=== PATIENT | male | born 1965 | race Caucasian/White ===

== ENCOUNTER 2017-04-09 07:50 | Day surgery (SDC) | payer BC ==
--- NOTE | ~2017-04-09 | OP ---
Record Of Operation [facility] [address] [place] [id number] NAME: CHRISTI DOBBS : 65 STATUS : REG [facility]#: [id number] AGE: 52 ADM/REG DATE : 04/09/17 MR#: [id number] REPORT SERV DATE: 04/09/17 DICTATED BY: ZA LEVINE DATE: 04/09/17 REPORT STATUS : Draft TRANSCRIBED BY: BIANKA DATE: 04/09/17 DATE OF PROCEDURE: 04/09/2017 PREOPERATIVE DIAGNOSIS: Left ureteral stone. POSTOPERATIVE DIAGNOSIS: Left ureteral stone. PROCEDURE: Left ESWL. SURGEON: Za Levine MD. ANESTHESIA: MAC. SPECIMENS: None. ESTIMATED BLOOD LOSS: None. DISPOSITION: To day surgery in good condition. HISTORY: This is a 52-year-old gentleman with a 7 mm left ureterovesical junction stone who presents today for the above-stated procedure. PROCEDURE IN DETAIL: After consent was obtained, the patient was taken to the lithotripsy table and placed on the table in supine position. His left ureterovesical junction stone was located on two planes as the most medial calcification in the pelvis. MAC anesthetic was induced. He then received 4000 shocks at max energy level of 9 and rate of 90 to the stone. He tolerated the procedure and was taken to day surgery in good condition. Plan will be to send him home today and follow up in one to two weeks with a KUB. All of his prescriptions were given to him in the emergency room last night. APRIL/BIANKA Za Levine M.D. / [id number] CC: Za Levine M.D.
[2017-04-09 08:42] LABS: ASCORBIC ACID (UR NOT ORDER) NEG (NEG); BILIRUBIN, URINE NEGATIVE (NEG); KETONE, URINE NEGATIVE (NEG); LEUKOCYTE ESTERASE(NOT OR NEG (NEG); WBC (NOT ORDERED) (RFLEX) 4 (0-5)
[2017-04-09 09:04] LABS: BASOPHILS 0.3 %; BASOPHILS ABSOLUTE 0.02 10/3/uL (0.0-0.16); EOSINOPHILS 1.3 %; EOSINOPHILS ABSOLUTE 0.09 10/3/uL (0.0-0.53); HEMATOCRIT 41.8 % (40.0-51.0); HEMOGLOBIN 13.7 g/dL (13.6-17.8); IMMATURE GRANULOCYTES 0.3 %; IMMATURE GRANULOCYTES ABSOLUTE 0.02 10/3/uL (0.0-0.11); LYMPHOCYTES 20.5 %; MEAN CORPUS HGB CONC 32.8 g/dL (32.0-36.0); MEAN CORPUSCULAR HEMOGLOB 29.2 pg (26.0-34.0); MEAN CORPUSCULAR VOLUME 89.1 fL (80-100); MEAN PLATELET VOLUME 9.7 fL (9.2-13.0); MONOCYTES 11.8 %; MONOCYTES ABSOLUTE 0.81 10/3/uL (0.21-1.20); NEUTROPHILS 65.8 %; PLATELET COUNT 271 10/3/uL (150-400); RBC DISTRIBUTION WIDTH 13.6 % (12.0-16.0); RED CELL COUNT 4.69 10/6/uL (4.7-6.1); WHITE BLOOD CELLS 6.8 10/3/uL (4.5-10.5)
[2017-04-09 09:05] LABS: MANUAL DIFF NO %
[2017-04-09 09:15] LABS: BUN (BLOOD UREA NITROGEN) 19 MG/DL (6-23); CHLORIDE, SERUM 109 MMOL/L (96-112); CO2 (CARBON DIOXIDE) 30 MMOL/L (24-34); CREATININE 0.91 MG/DL (0.70-1.30); GFR AFRICAN AMERICAN 112 ML/MIN (>=60); GFR NON AFRICAN AMERICAN 97 ML/MIN (>=60); GLUCOSE, SERUM 98 MG/DL (60-99); SODIUM, SERUM 145 MMOL/L (135-148)
[2017-04-09 10:13] LABS: PFA (COL/ADP) 90 SEC (51-105); PFA (COL/EPI) > 300 SEC (72-180)
[2017-05-19] MEDS ORDERED: PRILOSEC OTC20 MG PO (11:50)
[2017-06-23] MEDS ORDERED: VIAGRA25 PO (12:18)
== END 2017-04-09 13:32 | disposition home or self-care (01) ==
LOC: SDC 07:50
PROVIDERS: Urology
PROC: 0TF7XZZ Fragmentation in Left Ureter, External Approach (ICD-10-PCS; principal; 2017-04-09 10:00)
DX: N20.1 Calculus of ureter (principal); K21.9 Gastro-esophageal reflux disease without esophagitis; Z87.891 Personal history of nicotine dependence
CPT/HCPCS: 50590; 74000; 80048; 81001; 82310; 84550; 85025; 85576; 93005; J2250; J3010